=== PATIENT | female | born 1950 | race Caucasian/White ===

== ENCOUNTER 2016-08-05 08:30 | Inpatient (IN) | payer MEDICARE, OTHER ==
[~2016-08-05] VITALS: Ht 158 cm; Wt 78.0 kg
[2016-08-05 07:52] LABS: CREATININE 0.8 mg/dL (0.5-1.0); POTASSIUM 4.2 mmol/L (3.5-5.1)
[2016-08-06 05:10] LABS: HGB 11.7 g/dl (12.5-16.0); MCH 30.2 pg (25.0-31.0); MCHC 33.4 g/dL (32.0-36.0); MCV 90.4 fL (78.0-100.0); MPV 9.6 fL (6.0-9.5); RBC 3.87 M/uL (4.20-5.40); RDW 12.7 % (11.5-14.0); WBC 13.6 K/uL (4.0-10.5)
[2016-08-06 05:25] LABS: CREATININE 0.8 mg/dL (0.5-1.0); POTASSIUM 4.5 mmol/L (3.5-5.1)
[2016-08-07 05:39] LABS: HCT 33.3 % (37.0-47.0); HGB 10.9 g/dl (12.5-16.0); MCH 30.2 pg (25.0-31.0); MCHC 32.7 g/dL (32.0-36.0); MCV 92.2 fL (78.0-100.0); MPV 9.7 fL (6.0-9.5); RBC 3.61 M/uL (4.20-5.40); RDW 13.4 % (11.5-14.0); WBC 8.7 K/uL (4.0-10.5)
[2016-08-07 05:52] LABS: CREATININE 0.9 mg/dL (0.5-1.0); POTASSIUM 4.1 mmol/L (3.5-5.1)
[2016-08-08 05:04] LABS: HCT 34.8 % (37.0-47.0); HGB 11.3 g/dl (12.5-16.0); MCH 30.1 pg (25.0-31.0); MCHC 32.5 g/dL (32.0-36.0); MCV 92.8 fL (78.0-100.0); MPV 9.5 fL (6.0-9.5); RBC 3.75 M/uL (4.20-5.40); RDW 13.2 % (11.5-14.0); WBC 7.7 K/uL (4.0-10.5)
== END 2016-08-08 12:00 | DRG 470 ==
LOC: FMS 08:30
PROVIDERS: Internal Medicine Nephrology; Nurse Practitioner Adult Health; ADMIT Legal Medicine
PROC: 8E0YXBZ Computer Assisted Procedure of Lower Extremity (ICD-10-PCS; 2016-08-05)
PROC: 0SRC0J9 Replacement of Right Knee Joint with Synthetic Substitute, Cemented, Open Approach (ICD-10-PCS; principal; 2016-08-05 08:30)
DX: M17.11 Unilateral primary osteoarthritis, right knee (principal); M50.223 Other cervical disc displacement at C6-C7 level; I10 Essential (primary) hypertension; E78.5 Hyperlipidemia, unspecified; G56.02 Carpal tunnel syndrome, left upper limb; Z77.22 Contact with and (suspected) exposure to environmental tobacco smoke (acute) (chronic); F32.9 Major depressive disorder, single episode, unspecified; D72.829 Elevated white blood cell count, unspecified; Z88.2 Allergy status to sulfonamides; Z79.1 Long term (current) use of non-steroidal anti-inflammatories (NSAID); Z91.040 Latex allergy status; Z88.5 Allergy status to narcotic agent; Z83.3 Family history of diabetes mellitus; Z82.49 Family history of ischemic heart disease and other diseases of the circulatory system; Z83.6 Family history of other diseases of the respiratory system; Z82.3 Family history of stroke; Z80.9 Family history of malignant neoplasm, unspecified
CPT/HCPCS: 36415; 73560; 80048; 86850; 86900; 86901; 88305; 88311; 94010; 94668; 94762; 97110; 97116; 97162; 97165; 97530; 97530-GP; 97535; C1776; J0131; J0697; J1100; J1170; J1885; J2405; J2704; J2795; J3010

== ENCOUNTER 2016-08-08 12:00 | Inpatient (IN) | payer MEDICARE, OTHER ==
--- NOTE | 2016-08-08 14:48 | NUR ---
PT WENT IN TO EVALUATE RES'D AND FOUND LYING ON FLOOR, SHE STATED SHE HAD NOT FALLEN BUT LAID DOWN TO FEEL THE COOL FLOOR BECAUSE SHE WAS NAUSEATED, WHILE PT CAME TO GET ME RES'D GOT SELF BACK UP TO COMODE, AND STAED SHE WAS FINE, FEELS BETTER SINCE SHE COOLED OFF AND BOWELS MOVED, DOES NOT WANT ANY ONE NOTIFIED, A/O X3, UP WALKING WITH THERAPIST AFTERWARDS
--- NOTE | 2016-08-14 12:29 | NUR ---
PT. TO D/C HOME ON 08/17/16. PT. WILL NOT REQUIRE ANY DME AND [facility] THERAPY WILL BE COMPLETED. PT. REQUESTED OUTPT. THERAPY AT [facility]. FIRST APPT. IS 08/20/16 @ 1:00 P.M. [facility]AN TRANPORTATION FROM THE HOSPITAL WILL PICK HER UP 1 HOUR PRIOR TO APPT. D/C NOTICE AND QUESIONNAIRE GIVEN.
--- NOTE | 2016-08-15 11:56 | NUR ---
PT. REQUESTED TO BE D/C HOME THIS DATE, DUE TO THE THREAT OF BAD WEATHER. SPOKE SHILPA ANDREA WITH THERAPY. EMRE IS FINE WITH PT. D/C HOME TODAY. ALL OTHER PLANS REMAIN IN EFFECT.
--- NOTE | 2016-08-15 12:15 | NUR ---
DISCHARGE INSTRUCTIONS GIVEN TO PATIENT, VOICED COMPLETE UNDERSTANDING. AWAITING RIDE HOME, CONDITION STABLE.
== END 2016-08-15 14:31 | disposition home or self-care (01) | DRG 561 ==
LOC: FSNU 12:00
PROVIDERS: ADMIT Internal Medicine Nephrology
DX: Z47.1 Aftercare following joint replacement surgery (principal); I10 Essential (primary) hypertension; Z96.651 Presence of right artificial knee joint; E78.5 Hyperlipidemia, unspecified; F32.9 Major depressive disorder, single episode, unspecified
CPT/HCPCS: 97110; 97116; 97161; 97165; 97530; 97530-GP; 97535